=== PATIENT | female | born 1965 | race Caucasian/White ===

== ENCOUNTER 2017-05-24 16:56 | Emergency (ER) | payer BC, SELFPAY ==
[2017-05-24] MEDS ORDERED: Ketorolac Tromethamine 30 MG/ML VIAL ONE (17:09)
--- NOTE | 2017-05-24 18:09 | RAD ---
THREE VIEWS RIGHT FOOT: 05/24/17 HISTORY: Bilateral foot pain after a fall. FINDINGS: There is no fracture or dislocation seen. A plantar calcaneal enthesophyte is identified. Calcificati ons overlie the subcutaneous soft tissues adjacent to the distal tibia likely related to phleboliths. IMPRESSION: No acute osseous abnormality right foot. POS: [facility]
--- NOTE | 2017-05-24 18:10 | RAD ---
THREE VIEWS LEFT FOOT: 05/24/17 HISTORY: Bilateral foot pain after a fall. FINDINGS: there is no evidence of a fracture or dislocation. A plantar calcaneal enthesophyte is seen. Phleboli ths overlie the subcutaneous soft tissues distal left lower extremity. IMPRESSION: No acute osseous abnormality left foot. POS: [facility]
--- NOTE | 2017-05-24 19:06 | RAD ---
THREE VIEWS RIGHT ANKLE: 05/24/17 HISTORY: Right ankle injury after a fall. FINDINGS: The ankle mortise is congruent. There is no fracture or dislocation seen. a plantar calcaneal entheso phyte is identified. Phleboliths are seen overlying the anterior distal subcutaneous soft tissues rig ht lower extremity. IMPRESSION: No acute osseous abnormality. POS: [facility]
== END 2017-05-24 18:21 | disposition home or self-care (01) ==
LOC: ERS 16:56
DX: S93.401A Sprain of unspecified ligament of right ankle, initial encounter (principal); I25.10 Atherosclerotic heart disease of native coronary artery without angina pectoris; E03.9 Hypothyroidism, unspecified; E78.5 Hyperlipidemia, unspecified; I10 Essential (primary) hypertension; W19.XXXA Unspecified fall, initial encounter
CPT/HCPCS: 96372; J1885

== ENCOUNTER 2018-01-17 22:18 | Inpatient (IN) | payer BC, OTHER ==
[2018-01-17 23:19] LABS: #Basophils 0.1 thou/uL (0.0-0.2); #Eosinphils 0.2 thou/uL (0.0-0.7); #Lymphocytes 2.7 thou/uL (1.20-3.40); #Monocytes 1.1 thou/uL (0.11-0.59); #Neutrophils 8.8 thou/uL (1.40-6.50); %Basophils 0.6 % (0.0-1.0); %Eosinophils 1.6 % (0.0-10.0); %Lymphocytes 20.6 % (21.0-51.0); %Monocytes 8.8 % (0.0-10.0); %Neutrophils 68.3 % (42.0-75.0); Hemoglobin 12.2 g/dL (12.0-16.0); Mean Corpuscular HGB CONC 31.5 g/dL (32.0-36.0); Mean Corpuscular Hemoglobin 25.9 pg (27.0-31.0); Mean Corpuscular Volume 82.3 fL (78.0-98.0); Mean Platelet Volume 7.3 fL (7.4-10.4); Platelet Count 406 thou/uL (130-400); RBC Distribution Width 16.3 % (11.5-14.5); Red Blood Cell (RBC) Count 4.71 mill/uL (4.20-5.40); White Blood Cell (WBC) Count 12.9 thou/uL (4.8-10.8)
[2018-01-17 23:39] LABS: ALT (SGPT) 33 U/L (8-55); AST (SGOT) 30 U/L (5-34); Alkaline Phosphatase 89 U/L (40-150); Anion Gap 14 mmol/L (10-20); BUN (Urea Nitrogen) 34 mg/dL (9.8-20.1); Bilirubin, Total 0.2 mg/dL (0.2-1.2); Calc. Creatinine Clearance 0 mL/min (70-130); Calcium 9.4 mg/dL (7.8-10.44); Carbon Dioxide 20 mmol/L (22-29); Chloride 108 mmol/L (98-107); Estimated GFR-MDRD 49; Globulin 2.8 g/dL (2.4-3.5); Glucose 95 mg/dL (70-105); Protein, Total 6.8 g/dL (6.0-8.3); Sodium 137 mmol/L (136-145)
--- NOTE | 2018-01-17 23:41 | RAD ---
AP PELVIS 01/17/18 HISTORY: Fall. FINDINGS/IMPRESSION: There are postop changes and metallic hardware at L5-S1 level. No acute fracture or dislocation is se en. POS: [facility]
--- NOTE | 2018-01-17 23:42 | RAD ---
RIGHT LEG TWO VIEWS: 01/17/18 HISTORY: Fall. Right leg pain. FINDINGS/IMPRESSION: The right tibia and fibula are intact. POS: [facility]
[2018-01-17 23:43] LABS: CKMB 2.8 ng/mL (0-6.6); Troponin I 0.285 ng/mL (< 0.028)
--- NOTE | 2018-01-17 23:43 | RAD ---
RIGHT ANKLE THREE VIEWS: 01/17/18 HISTORY: Fall, right ankle pain. FINDINGS/IMPRESSION: The ankle mortise is maintained. No fracture or dislocation is seen. A plantar calcaneal spurs are no lindsey. POS: [facility]
--- NOTE | 2018-01-17 23:44 | RAD ---
LEFT LEG TWO VIEWS: 01/17/18 HISTORY: Injury, left leg pain. FINDINGS/IMPRESSION: No acute fracture of the left tibia or fibula seen. Well circumscribed osseous densities inferior to the medial and lateral malleoli likely represent old injury. POS: [facility]
--- NOTE | 2018-01-17 23:46 | RAD ---
LEFT ANKLE THREE VIEWS: 01/17/18 HISTORY: Injury, fall. Left ankle pain. FINDINGS/IMPRESSION: The ankle mortise is maintained. Well corticated densities inferior to the medial and lateral malleol us are likely due to old injury. No acute fracture or dislocation seen in the ankle. There is suggest ion of fractures involving the fourth and fifth metatarsals. Dedicated radiographs of the left foot a re recommended. POS: [facility]
[2018-01-18] MEDS ORDERED: Enoxaparin Sodium 100 MG/ML SYRINGE ONE (00:48)
[2018-01-18] MEDS ORDERED: Morphine 4 MG/ML VIAL ONE (00:48)
--- NOTE | 2018-01-18 11:41 | RAD ---
LEFT FOOT 3 VIEWS: HISTORY: Left foot injury. Fall. COMPARISON: 05/24/2017. FINDINGS: Slight medial subluxation of the 4th metatarsal base in relation to the cuboid is unchanged from the 05/24/2017 exam. Pes planus on the lateral view. Small plantar enthesophyte. Comminuted oblique fracture of the distal 4th metatarsal shaft shows minimal medial displacement of t he distal fragment. Mildly comminuted oblique fracture of the 5th metatarsal neck with 0.3 cm medial displacement of the distal fragment. No evidence of intraarticular extension. Callus formation abo ut a slightly impacted fracture of the mid shaft proximal phalanx little toe. IMPRESSION: 1. Left 4th and 5th metatarsal fractures include acute components. 2. Healing fracture little toe. POS: [facility]
[2018-01-18] MEDS ORDERED: Ketorolac Tromethamine 30 MG/ML VIAL IVP PRN (11:55)
[2018-01-18] MEDS ORDERED: Fentanyl 100 MCG/2 ML VIAL SLOW IVP PRN (12:12)
[2018-01-18] MEDS ORDERED: Acetaminophen 325 MG TAB PO PRN (12:12)
[2018-01-18] MEDS ORDERED: traMADol HCl 50 MG TAB PO PRN (12:12)
[2018-01-18 13:08] VITALS: BMI 51.4
[2018-01-18] MEDS ORDERED: Metoprolol Tartrate 25 MG TAB PO SCH ×2 (13:30→21:00)
[2018-01-18] MEDS ORDERED: Lisinopril 10 MG TAB PO SCH (13:30)
[2018-01-18] MEDS ORDERED: Aspirin 325 MG TAB PO SCH (13:30)
[2018-01-18] MEDS ORDERED: Baclofen 10 MG TAB PO SCH ×2 (13:30→21:00)
[2018-01-18] MEDS ORDERED: Levothyroxine Sodium 88 MCG TAB PO SCH (13:30)
--- NOTE | 2018-01-18 13:34 | HP ---
REASON FOR ADMISSION: Frequent falls with syncope, demand ischemia, fracture of left fourth and fifth metatarsals. HISTORY OF PRESENT ILLNESS: The patient gives history of feeling dizzy from last 3-4 weeks now. She went to her primary care physician, Dr. Hines and was advised to discontinue lisinopril and metoprolol. She was asked to see her nursing center tutor, Dr. Sainz. Day before, her blood pressure was 168/90 and patient has known heart disease. She started taking metoprolol and started feeling dizzy again and stopped it yesterday. Yesterday, patient apparently passed out and hit her right hip around 9:00 p.m. She was trying to reach out for a chair and lost consciousness for a few seconds and came back soon after. Currently, complains of bilateral knee pain and left foot pain. No complaints of chest pain or palpitations at present. No complaints of shortness of breath , fever, urinary frequency or urgency. No complaints of cough or expectoration. PAST MEDICAL AND SURGICAL HISTORY: Known history of coronary artery disease and per patient has a 5-vessel disease which is 50%-60% and no intervention has been done. She closely follows up with Dr. Sainz. Hypothyroidism, gastric bypass, dyslipidemia. Tonsillectomy, lumbar spine surgery, cholecystectomy, and hysterectomy. CURRENT MEDICATIONS: The patient is on carbamazepine extended release 100 mg p.o. at bedtime, aspirin 325 mg p.o. daily, Ultram p.r.n. for pain, Paxil 10 mg daily, gabapentin 1200 mg p.o. q.a.m. and 600 mg p.o. q.p.m., lovastatin 40 mg p.o. daily, baclofen 20 mg twice daily, levothyroxine 88 mcg p.o. daily, Protonix 40 mg p.o. daily, Zestril 10 mg p.o. daily, Lopressor 25 mg twice daily. Please note, patient is not taking the last two medications now. ALLERGIES: No known drug allergies. PERSONAL HISTORY: Does not abuse alcohol or drugs. No history of smoking. Lives with her . FAMILY HISTORY: Father at the age of 52 years. He has had history of coronary artery disease and bypass. Mother is living and has history of CABG. REVIEW OF SYSTEMS: The following complete review of systems was negative, unless otherwise mentioned in the HPI or below: Constitutional: Weight loss or gain, ability to conduct usual activities. Skin: Rash, itching. Eyes: Double vision, pain. ENT/Mouth: Nose bleeding, neck stiffness, pain, tenderness. Cardiovascular: Palpitations, dyspnea on exertion, orthopnea. Respiratory: Shortness of breath, wheezing, cough, hemoptysis, fever or night sweats. Gastrointestinal: Poor appetite, abdominal pain, heartburn, nausea, vomiting, constipation, or diarrhea. Genitourinary: Urgency, frequency, dysuria, nocturia. Musculoskeletal: Pain, swelling. Neurologic/Psychiatric: Anxiety, depression. Allergy/Immunologic: Skin rash, bleeding tendency. PHYSICAL EXAMINATION: GENERAL: The patient is a 52-year-old female who is currently not in any acute distress. VITAL SIGNS: Blood pressure 106/62, pulse 54 per minute, respiratory rate 16 per minute, temperature 98.1 degrees Fahrenheit, saturating 96% on room air. NECK: Supple, no elevated JVD. EYES: Extraocular muscles intact. Pupils reacting to light. ORAL CAVITY: Mucous membranes are moist. No exudates or congestion. CARDIOVASCULAR SYSTEM: S1, S2 heard. Regular rhythm. RESPIRATORY SYSTEM: Air entry 1+ bilaterally. No rales or rhonchi. ABDOMEN: Soft, bowel sounds heard. No tenderness, rigidity or guarding. EXTREMITIES: No peripheral edema or calf tenderness. VASCULAR SYSTEM: Peripheral pulses 2+ bilateral, no ischemic ulcerations or gangrene. Patient has tenderness over the left fourth and fifth toes and there is some ecchymosis seen. There is mild edema over the lateral aspect of the foot over the fourth and fifth metatarsal area. CENTRAL NERVOUS SYSTEM: No gross focal deficits noted. Patient is alert, awake , oriented well. PSYCHIATRIC SYSTEM: The patient's mood is euthymic. No hallucinations or delusions. IMAGING DATA AND LABORATORY DATA: Patient has had multiple imaging studies done. Pelvic x-ray done shows no acute fracture or dislocation. X-ray of tibia , fibula, right leg, 2 views done shows no acute fractures. Right ankle, three view standard x-ray done shows ankle mortise to be maintained. No acute fracture or dislocation seen. A plantar calcaneal spur noted. Left ankle three view standard x-ray done shows ankle mortise is maintained, well corticated densities inferior to the medial and lateral malleolus are likely due to old injury. No acute fracture or dislocations seen in the ankle. There is suggestion of fractures involving the fourth and fifth metatarsals. Left tibia fibula x-ray done shows no acute fracture, well circumscribed osseous densities inferior to the medial and lateral malleoli likely represent an old injury. Left foot three view x-ray done shows left fourth and fifth metatarsal fractures, healing fracture of the little toe. Serum bicarbonate 20, BUN 34, creatinine 1.1, serum glucose 95. Troponin I 0.28, CK-MB 2.8. Liver enzymes within normal limits. Albumin is 4.0. White count of 12, hemoglobin and hematocrit 12 and 38, platelet count 406 with 68% neutrophils. CLINICAL IMPRESSION AND PLAN: The patient will be under observation on telemetry for syncope with momentary loss of consciousness, demand ischemia, left fourth and fifth metatarsal fracture due to fall. We will obtain orthopedic consultation with Dr. Tsai. The patient is asking for more powerful medication than morphine. She will be on Toradol for now. PT, OT evaluations per Dr. Tsai as advised. She will be on aspirin, Lipitor, baclofen, Tegretol, levothyroxine, Protonix, Paxil, and Ultram as before. She will be on Lopressor 25 mg twice daily for now. Two more sets of troponin will be obtained and a follow up on the results. Addendum: has evaluated patient and is cleared for discharge. She is hemodynamically stable and will be discharged home. She needs to f/u with as adviced. Please note this is a same day admit discharge under observation summary. is adviced to f/u with her nursing center tutor in 4 weeks. MTDD
[2018-01-18 15:13] LABS: Troponin I 0.279 ng/mL (< 0.028)
[2018-01-18 15:33] VITALS: BP 126/58; TEMP 98.3
--- NOTE | 2018-01-18 15:50 | CON ---
DATE OF CONSULTATION: 01/18/2018 HISTORY OF PRESENT ILLNESS: Ms. Heredia is a 52-year-old female who had a syncopal episode at home an d states that she fell and had immediate pain, particularly in her left foot. She was seen in the em ergency room last night and early this morning. She did have x-rays obtained of the left foot which I was able to review. She had fracture of the neck of the fourth and fifth metatarsals and the base of the proximal phalanx of the little toe on the left foot. She has no open wounds over the fracture s. I was consulted for evaluation and management of the fracture of the left foot. PHYSICAL EXAMINATION: The patient has moderate swelling and bruising over the left foot. She has po int tenderness over the distal aspect of the fourth and fifth metatarsals and at the base of the sujatha le toe. All of the digits are in good alignment. She has good sensation in her entire left foot. IMPRESSION: Fractures of the neck of the fourth and fifth metatarsals, fracture at the proximal phal anx of the left little toe. All fractures are in good alignment and do not require surgery. PLAN: Patient will elevate her left foot, use ice as much as possible, Tim wrap when she does get ou t of bed. She can weightbear as tolerated on the left foot using a postoperative shoe. Finally, the patient is discharged. She will follow up in my office in 2 weeks.
--- NOTE | 2018-01-18 17:32 | RAD ---
RIGHT KNEE FOUR VIEWS: 01/18/18 HISTORY: Knee pain, status post fall. The bones are demineralized. There is no signs of fracture or dislocation. Minimal joint effusion is noted. IMPRESSION: No evidence of fracture. POS: [facility]
[2018-01-18] MEDS ORDERED: Atorvastatin Calcium 10 MG TAB PO SCH (21:00)
[2018-01-19] MEDS ORDERED: Levothyroxine Sodium 88 MCG TAB PO SCH (06:00)
[2018-01-19] MEDS ORDERED: Aspirin 325 MG TAB PO SCH (09:00)
[2018-01-19] MEDS ORDERED: Lisinopril 10 MG TAB PO SCH (09:00)
[2018-01-19] MEDS ORDERED: PARoxetine 20 MG TAB PO SCH (09:00)
== END 2018-01-18 17:37 | disposition home or self-care (01) | DRG 563 ==
LOC: ERS 22:18 → 2SE 01-18 11:31
PROVIDERS: ADMIT Internal Medicine; ATTEND Internal Medicine
DX: S92.342A Displaced fracture of fourth metatarsal bone, left foot, initial encounter for closed fracture (principal); I24.8 Other forms of acute ischemic heart disease; S92.352A Displaced fracture of fifth metatarsal bone, left foot, initial encounter for closed fracture; R55 Syncope and collapse; Z91.81 History of falling; I25.10 Atherosclerotic heart disease of native coronary artery without angina pectoris; E03.9 Hypothyroidism, unspecified; Z98.84 Bariatric surgery status; E78.5 Hyperlipidemia, unspecified; Z79.899 Other long term (current) drug therapy; Z79.82 Long term (current) use of aspirin; Z79.891 Long term (current) use of opiate analgesic; W19.XXXA Unspecified fall, initial encounter
CPT/HCPCS: 36415; 72170; 80053; 82553; 84484; 85025; 93005; 96372; 96374; J1650; J1885; J2270; J3010

== ENCOUNTER 2018-03-14 11:26 | Outpatient (CLI) | payer BC ==
--- NOTE | 2018-03-14 12:24 | RAD ---
RIGHT HIP TWO VIEWS: Date: 03-14-18 Comparison: 06-14-15 History: Low back pain with pain in bilateral hips. FINDINGS: There is degenerative change involving the pubic symphysis. There is no displaced fracture or evidenc e of dislocation. IMPRESSION: No acute osseous abnormality. POS: [facility]
--- NOTE | 2018-03-14 12:24 | RAD ---
LEFT HIP TWO VIEWS: Date: 03-14-18 Comparison: 06-14-15 History: Low back pain, bilateral hip pain. FINDINGS: There is mild acetabular osteophyte formation laterally on the left. No acute fracture or dislocation . IMPRESSION: No acute findings. POS: [facility]
--- NOTE | 2018-03-14 12:30 | CT ---
LUMBAR SPINE CT: Date: 03-14-18 Comparison: 06-14-15 History: Lumbar spine pain, prior lumbar spine surgery. Technique: Axial CT imaging at 3 mm intervals from lower thoracic spine through sacrum with coronal a nd sagittal reformatted imaging. FINDINGS: Evaluation for central canal and/or neural foraminal stenosis is limited on routine CT. Incompletely imaged low density right adrenal mass suggesting adenoma noted measuring 4.2 cm in greatest dimension , unchanged. There are bilateral pedicle screws at L5 and S1 with vertically oriented interlocking rods, new when compared to the prior examination. There is no evidence for hardware failure. No evidence for acute fracture or dislocation. There is stable bilateral sacroiliac joint degenerativ e change. T12-L1: No osseous cause of significant central canal or neural foraminal stenosis. Mild bilateral f acet hypertrophy. L1-2: Disc space narrowing. Mild anterior osteophyte formation. Mild bilateral facet hypertrophy. Lef t lateral osteophyte formation. No osseous cause of significant central canal or neural foraminal aleksandr nosis. L2-3: There is disc space narrowing. There is lateral osteophyte formation on the right and there is bilateral facet hypertrophy. There is no osseous cause of significant central canal or neural foramin al stenosis. L3-4: Mild bilateral facet hypertrophy. No osseous cause of significant central canal or neural moses inal stenosis. L4-5: There is disc space narrowing and a vacuum disc. There is bilateral facet hypertrophy. There is probable mild bilateral neural foraminal stenosis. L5-S1: Bilateral facet hypertrophy noted with at least mild bilateral neural foraminal stenosis, left greater than right, partially limited in assessment secondary to streak artifact from post-operative hardware. Mild posterior osteophyte. No worrisome lytic or blastic bone lesion. IMPRESSION: Degenerative and post-operative changes within the lumbar spine. Evaluation for central canal and rico ral foraminal stenosis is limited and could be better assessed via myelogram as clinically warranted. No acute fracture or evidence of hardware failure. POS: [facility]
== END 2018-03-14 11:27 | disposition home or self-care (01) ==
LOC: TBSIIMAG 11:26
PROVIDERS: ATTEND Neurological Surgery
DX: M54.5 Low back pain (principal); M47.816 Spondylosis without myelopathy or radiculopathy, lumbar region; M48.061 Spinal stenosis, lumbar region without neurogenic claudication; M25.552 Pain in left hip; M25.551 Pain in right hip; Z98.890 Other specified postprocedural states
CPT/HCPCS: 72131

== ENCOUNTER 2018-07-22 12:08 | Inpatient (IN) | payer BC, SELFPAY ==
[~2018-07-22 12:08] MED LIST: ISOVUE-370 76%-LOCM 1 ML ONE; Iopamidol 370 76% 50 ML VIAL FS ONE
[2018-07-22 13:13] LABS: Hemoglobin 11.8 g/dL (12.0-16.0); Mean Corpuscular HGB CONC 30.6 g/dL (32.0-36.0); Mean Corpuscular Hemoglobin 24.6 pg (27.0-31.0); Mean Corpuscular Volume 80.6 fL (78.0-98.0); Mean Platelet Volume 8.9 fL (7.4-10.4); Platelet Count 269 thou/uL (130-400); RBC Distribution Width 18.3 % (11.5-14.5); Red Blood Cell (RBC) Count 4.78 mill/uL (4.20-5.40)
--- NOTE | 2018-07-22 13:27 | RAD ---
EXAM: Chest 2 views: HISTORY: Coughing up bright red blood COMPARISON: 05/23/13 FINDINGS: There is a normal-sized cardiomediastinal silhouette. Scattered airspace opacities are seen in the ri ght lung consistent with infiltrates. The bones are unremarkable. IMPRESSION: Multifocal right pulmonary infiltrates
[2018-07-22 13:28] LABS: ALT (SGPT) 8 U/L (8-55); AST (SGOT) 17 U/L (5-34); Albumin 3.8 g/dL (3.5-5.0); Alkaline Phosphatase 111 U/L (40-150); Anion Gap 11 mmol/L (10-20); BUN (Urea Nitrogen) 17 mg/dL (9.8-20.1); Bilirubin, Total 0.7 mg/dL (0.2-1.2); CK (CPK) 87 U/L (29-168); Calc. Creatinine Clearance 0 mL/min (70-130); Calcium 9.5 mg/dL (7.8-10.44); Carbon Dioxide 25 mmol/L (22-29); Chloride 106 mmol/L (98-107); Estimated GFR-MDRD 75; Globulin 2.1 g/dL (2.4-3.5); Glucose 113 mg/dL (70-105); Potassium 4.4 mmol/L (3.5-5.1); Protein, Total 5.9 g/dL (6.0-8.3); Sodium 138 mmol/L (136-145)
[2018-07-22 13:34] LABS: Anisocytosis SLIGHT = 6-15 cells (100X) (0-5/hpf); Band 24 % (5-11); Hypochromia SLIGHT = 6-15 cells (100X) (0-5/hpf); Lymphocytes 4 % (21-51); MDiff Complete? YES; Monocytes 2 % (0-10); Neutrophil 70 % (42-75); Platelet Morphology Comment Appears Adequate
[2018-07-22 13:51] LABS: CKMB 1.6 ng/mL (0-6.6)
--- NOTE | 2018-07-22 14:39 | CT ---
Exam: CTA of the chest HISTORY: Cough for one month. COMPARISON: None TECHNIQUE: Multiple contiguous axial images were obtained a CTA of the chest with contrast per pulmon martha embolism protocol. 3-D oblique MIP reformats and direct coronal reformats were performed. FINDINGS: HEART: Normal in size without focal cardiac abnormality. PULMONARY ARTERIES: Normal in caliber without filling defects to suggest pulmonary emboli. MEDIASTINUM: No hilar or mediastinal lymphadenopathy. LUNGS: Multifocal opacities are seen in the right upper, middle, and lower lobes consistent with mult ifocal pneumonia. There may also be infiltrates in the left lower lobe. PLEURAL SPACE: No pleural effusion or pneumothorax. CHEST WALL SOFT TISSUES: Unremarkable VISUALIZED OSSEOUS STRUCTURES: Degenerative changes are seen in the spine. VISUALIZED SUBDIAPHRAGMATIC STRUCTURES: There is a 3.7 cm right adrenal mass with a mean Hounsfield u nit value of 1 consistent with a fat-containing adrenal adenoma.. The patient is status post cholecystectomy. IMPRESSION: 1. No evidence of pulmonary thromboembolism 2. Multifocal pneumonia 3. Right adrenal adenoma
[2018-07-22] MEDS ORDERED: Acetaminophen 500 MG TAB ONE (16:44)
[2018-07-22] MEDS ORDERED: Ondansetron ODT 4 MG TAB PO PRN (17:17)
[2018-07-22] MEDS ORDERED: Ondansetron PF 4 MG/2 ML Vial IVP PRN (17:17)
[2018-07-22 17:20] LABS: CKMB 1.2 ng/mL (0-6.6)
[2018-07-22] MEDS ORDERED: Melatonin 3 MG TAB PO PRN (17:46)
--- NOTE | 2018-07-22 18:47 | HP ---
CHIEF COMPLAINT: Worsening cough and hemoptysis. HISTORY OF PRESENT ILLNESS: A 53-year-old female with past medical history significant for coronary artery disease, hypothyroidism, morbid obesity, status post gastric bypass, amongst others, who presents to the hospital with worsening cough and hemoptysis. The patient reported that she has been coughing since about 1 month, associated with brownish green sputum production and right-sided pleuritic chest pain. The patient thought that this is due to her allergies and took over the counter medications. Symptoms continued until earlier today when the patient started coughing up blood, which she said was dark reddish, mixed with sputum. She had multiple episodes of hemoptysis compared to this evening. She was concerned and decided to come to the hospital for further evaluation. She also reported right back pain, which is worse with coughing and with respiratory effort. She also reported having chills and rigor today, but denied fever since onset of symptoms. There is also no history of nausea, vomiting, hematuria, dysuria, leg swelling, nausea or vomiting, abdominal pain. The patient, however, have migraine, for which she takes Excedrin Migraine. She also has chronic back pain, for which she is on several medications for that. On presentation to the emergency room, the patient was found to be afebrile, but further evaluation with CBC showed leukocytosis. Chest x-ray showed multifocal pulmonary infiltrates, which were also noted on subsequent CT angio of the chest. She was treated with Rocephin and azithromycin and was admitted subsequently for further evaluation and treatment. Since presentation here to the hospital, the patient reported that the bloody sputum have subsided. She denied recent travel outside of the country or sick contacts or family history of tuberculosis or contact with anybody with tuberculosis. PAST MEDICAL HISTORY: 1. Coronary artery disease. 2. Hypothyroidism. 3. Morbid obesity. 4. Dyslipidemia. 5. Chronic pain. 6. Cervical and lumbar spondylosis. 7. Migraine headache. PAST SURGICAL HISTORY: Include the following; 1. Cardiac catheterization. 2. Gastric bypass surgery. 3. Lumbar spine surgery. 4. Tonsillectomy. 5. Cholecystectomy. 6. Hysterectomy. FAMILY HISTORY: Significant for hypertension, diabetes, and coronary artery disease in both parents. Both parents also had CABG. SOCIAL HISTORY: The patient lives with family. Denied alcohol, smoking, or recreational drug use. ALLERGIES: NO KNOWN DRUG ALLERGY. THE PATIENT, HOWEVER, REPORTED TAKING THE MEDICATION DURING PRIOR HOSPITALIZATION, WHICH MADE HER FEEL BAD, BUT SHE WAS UNABLE TO PROVIDE THE NAME OF THE MEDICATION. MEDICATIONS: Home medications; 1. Tramadol 50 mg q.4 hours p.r.n. 2. Nitroglycerin 0.4 mg q.5 p.r.n. for chest pain. 3. Aspirin 325 mg p.o. daily. 4. Baclofen 20 mg p.o. b.i.d. 5. Gabapentin 600 mg p.o. every morning. 6. Levothyroxine 88 mcg p.o. daily. 7. Protonix 40 mg p.o. daily. 8. Paroxetine 10 mg p.o. daily. 9. Bentyl 20 mg p.o. q.i.d. p.r.n. Of note, the patient has Tegretol, celecoxib, lisinopril, and metoprolol as well as lovastatin, but she does not take this medication due to low blood pressure and recent near syncope as well as intolerance. REVIEW OF SYSTEMS: A 12-point review of systems performed was negative other than pertinent positives and negatives included in the history of present illness. PHYSICAL EXAMINATION: VITAL SIGNS: On presentation to the emergency room, the patient had the following vitals. Blood pressure 108/70, pulse 97, respiratory rate 20, temperature 97.6, SpO2 of 94 on room air. Current vital shows blood pressure 117/67, pulse 82, respiratory rate 14, temperature 99.4, SpO2 of 100% on room air. GENERAL: Morbidly obese female, in no obvious distress. Afebrile, anicteric, acyanotic. HEENT: Normocephalic, atraumatic. Pupils are equal and reacting to light. Oral mucosa is moist. NECK: Soft and supple with preserved range of motion. No masses appreciated. CARDIOVASCULAR: Regular rhythm and rate with normal heart sounds 1 and 2. No murmur is appreciated. RESPIRATORY: Fair air entry bilateral with no obvious rhonchi or wheezing appreciated. Scattered crackles noticed on the right hemithorax. GI: Abdomen is obese, soft, nontender, nondistended with normal bowel sounds. EXTREMITIES: Grossly normal looking, atraumatic, with no edema, erythema, or cyanosis. NEUROLOGIC: Conscious, alert, oriented x3 with appropriate mental status. Cranial nerves 2 through 12 are intact. The patient moves all extremities. DIAGNOSTIC DATA: CBC showed WBC count of 16.0, hemoglobin of 11.8, MCV of 80.6, platelets of 269. CMP showed sodium 138, potassium 4.4, chloride 106, CO2 of 25, BUN 17, creatinine 0.8, glucose 113, calcium 9.5, total bilirubin 0.7, AST 17, ALT 8, alkaline phosphatase 111, total protein 5.9, albumin 3.8, globulin 2.1. Initial cardiac markers showed CK 87, CK-MB 1.6, troponin 0.069. Repeat troponin 3 hours later showed 0.072. BNP is 81.9. Lactic acid is 1.3. Chest x-ray showed normal-sized cardiomediastinal silhouette with scattered airspace opacities seen in the right lung consistent with infiltrates. CT scan of the chest with and without contrast showed normal-sized heart without focal cardiac abnormality. Normal pulmonary arteries without filling defect to suggest pulmonary embolism. Multifocal opacities seen in the right upper middle and lower lobes consistent with multifocal pneumonia as well as infiltrates in the left lower lobe. No pleural effusion or pneumothorax noted. EKG showed normal sinus rhythm with no obvious ischemic changes. ASSESSMENT: 1. Multifocal pneumonia. 2. Hemoptysis: Most likely due to multifocal pneumonia. However, tuberculosis is a concern given chronic cough for more than about 1 month. There is no history of weight loss or night sweats however. 3. History of hypertension: The patient is currently off medications following recent syncopal episode. Blood pressures are within normal limits. 4. Coronary artery disease: The patient reportedly has had several cardiac catheterizations. 5. Elevated troponin: Most likely due to demand ischemia of the myocardium. Type 2 non-ST elevation myocardial infarction is a concern. 6. Pleuritic chest pain. 7. Chronic back pain. 8. Morbid obesity. 9. Hypothyroidism. PLAN: 1. We will admit the patient for observation with airborne isolation. 2. We will start broad-spectrum antibiotic therapy with Rocephin and azithromycin for community-acquired pneumonia. 3. We will also get sputum culture as well as AFB x3 to rule out tuberculosis. 4. We will start airborne precaution. 5. Analgesic as needed will be provided. 6. DVT prophylaxis with Lovenox. 7. Bronchodilators and oxygen supplementation as needed will also be provided. We will rule out acute myocardial infarction with serial troponin. 8. Diet as tolerated. 9. Ethics: Code status; full code. Spouse is the surrogate decision maker. Job ID: [id number]
[2018-07-22 21:57] VITALS: BMI 46.2
[2018-07-22] MEDS: cefTRIAXone\\ROCEPHIN 1 GM in Sodium Chloride 0.9% 100 ML IVPB SCH (22:08)
[2018-07-22] MEDS: Sodium Chloride 0.9% 1,000 ML IV SCH (22:12)
[2018-07-22] MEDS: Azithromycin 500 MG in Sodium Chloride 0.9% 250 ML 250 ML IVPB SCH (22:14)
[2018-07-22] MEDS: Baclofen 10 MG TAB PO SCH (22:20)
[2018-07-22] MEDS ORDERED: Gabapentin 400 MG CAP PO SCH (23:45)
[2018-07-22] MEDS: diphenhydrAMINE 50 MG CAP PO PRN (23:54)
[2018-07-22] MEDS: CeleCOXIB 100 MG CAP PO PRN (23:54)
[2018-07-23] MEDS: Levothyroxine Sodium 88 MCG TAB PO SCH (05:16)
[2018-07-23] MEDS: Sodium Chloride 0.9% 1,000 ML IV SCH ×2 (05:22→13:08)
[2018-07-23 06:21] LABS: #Eosinphils 0.3 thou/uL (0.0-0.7); #Lymphocytes 1.8 thou/uL (1.20-3.40); #Monocytes 0.7 thou/uL (0.11-0.59); #Neutrophils 12.2 thou/uL (1.40-6.50); %Basophils 0.3 % (0.0-1.0); %Lymphocytes 11.9 % (21.0-51.0); %Monocytes 4.6 % (0.0-10.0); %Neutrophils 81.3 % (42.0-75.0); Hemoglobin 10.8 g/dL (12.0-16.0); Mean Corpuscular HGB CONC 30.5 g/dL (32.0-36.0); Platelet Count 281 thou/uL (130-400); RBC Distribution Width 18.3 % (11.5-14.5); Red Blood Cell (RBC) Count 4.34 mill/uL (4.20-5.40)
[2018-07-23 06:44] LABS: Anion Gap 10 mmol/L (10-20); BUN (Urea Nitrogen) 13 mg/dL (9.8-20.1); Calc. Creatinine Clearance 172 mL/min (70-130); Calcium 9.9 mg/dL (7.8-10.44); Carbon Dioxide 30 mmol/L (22-29); Chloride 106 mmol/L (98-107); Estimated GFR-MDRD 87; Glucose 77 mg/dL (70-105); Potassium 4.2 mmol/L (3.5-5.1); Sodium 142 mmol/L (136-145)
[2018-07-23] MEDS ORDERED: Gabapentin 300 MG CAP PO SCH (09:00)
[2018-07-23] MEDS: Aspirin 325 MG TAB PO SCH (09:46)
[2018-07-23] MEDS: Baclofen 10 MG TAB PO SCH ×2 (09:46→21:29)
[2018-07-23] MEDS: Gabapentin 400 MG CAP PO SCH ×2 (09:46→21:28)
[2018-07-23] MEDS: PARoxetine 20 MG TAB PO SCH (09:46)
[2018-07-23] MEDS: Enoxaparin Sodium 40 MG/0.4 ML SYRINGE SC SCH (09:47)
[2018-07-23] MEDS: CeleCOXIB 100 MG CAP PO PRN (13:16)
[2018-07-23] MEDS: traMADol HCl 50 MG TAB PO PRN ×2 (13:16→19:48)
--- NOTE | 2018-07-23 14:26 | PDOC.PN ---
- Subjective Encounter Start Date: 07/23/18 Encounter Start Time: 10:24 Subjective: Admitted with worsening cough associated with sputum production and hemopty -: No fever. -: complains of sleepless nights - Objective Resuscitation Status - Order Detail: 07/22/18 17:17 Resuscitation Status Routine Resuscitation Status: FULL: Full Resuscitation Vital Signs & Weight: Vital Signs (12 hours) Temp Pulse Resp BP Pulse Ox 07/23/18 12:00 98.1 F 94 18 121/58 L 94 L 07/23/18 10:20 79 16 96 07/23/18 08:00 97.8 F 78 16 117/60 93 L 07/23/18 06:31 75 16 95 07/23/18 04:00 97.5 F L 79 16 102/52 L 99 Weight Weight 261 lb I&O: 07/22/18 07/23/18 07/24/18 06:59 06:59 06:59 Intake Total 1570 Output Total 1250 Balance 320 Result Diagrams: 07/23/18 05:30 07/23/18 05:30 Phys Exam - Physical Examination Constitutional: NAD obese HEENT: PERRLA, moist MMs, sclera anicteric Neck: supple fair air entry with right scattered crackles. No rhonchi Cardiovascular: RRR Gastrointestinal: soft, non-tender, no distention, positive bowel sounds morbidly obese Musculoskeletal: no edema, pulses present Neurological: non-focal, moves all 4 limbs Psychiatric: A&O x 3 Dx/Plan (1) Multifocal pneumonia Code(s): J18.9 - PNEUMONIA, UNSPECIFIED ORGANISM Status: Acute (2) Cough with hemoptysis Code(s): R04.2 - HEMOPTYSIS Status: Acute (3) Chronic pain syndrome Code(s): G89.4 - CHRONIC PAIN SYNDROME Status: Chronic (4) Coronary artery disease Code(s): I25.10 - ATHSCL HEART DISEASE OF [place] CORONARY ARTERY W/O ANG PCTRS Status: Chronic Qualifiers: Coronary Disease-Associated Artery/Lesion type: [place] artery [place] vs. transplanted heart: [place] heart Associated angina: without angina Qualified Code(s): I25.10 - Atherosclerotic heart disease of [place] coronary artery without angina pectoris (5) Low back pain Code(s): M54.5 - LOW BACK PAIN Status: Chronic Qualifiers: Chronicity: chronic Back pain laterality: unspecified Sciatica presence: unspecified whether sciatica present Qualified Code(s): M54.5 - Low back pain ; G89.29 - Other chronic pain (6) Morbid obesity Code(s): E66.01 - MORBID (SEVERE) OBESITY DUE TO EXCESS CALORIES Status: Chronic - Plan Continue antibiotics, bronchodilators and Prn oxygen -: Start mucinex -: Get quantiferon gold. AFB x3 in progress -: Start melatonin for sleep. -: Continue analgesic for pain. Continue airborne precaution. * .
[2018-07-23] MEDS: cefTRIAXone\\ROCEPHIN 1 GM in Sodium Chloride 0.9% 100 ML IVPB SCH (17:15)
[2018-07-23] MEDS: Acetaminophen 325 MG TAB PO PRN ×2 (17:31→21:28)
[2018-07-23] MEDS: Azithromycin 500 MG in Sodium Chloride 0.9% 250 ML 250 ML IVPB SCH (19:42)
[2018-07-23] MEDS: diphenhydrAMINE 50 MG CAP PO PRN (21:28)
[2018-07-24] MEDS: Levothyroxine Sodium 88 MCG TAB PO SCH (05:03)
[2018-07-24] MEDS: CeleCOXIB 100 MG CAP PO PRN ×2 (05:04→20:30)
[2018-07-24] MEDS: traMADol HCl 50 MG TAB PO PRN ×4 (05:06→20:26)
[2018-07-24] MEDS: Gabapentin 400 MG CAP PO SCH ×2 (09:18→20:25)
[2018-07-24] MEDS: Aspirin 325 MG TAB PO SCH (09:18)
[2018-07-24] MEDS: Acetaminophen 325 MG TAB PO PRN ×2 (09:18→22:17)
[2018-07-24] MEDS: Baclofen 10 MG TAB PO SCH ×2 (09:18→20:24)
[2018-07-24] MEDS: Enoxaparin Sodium 40 MG/0.4 ML SYRINGE SC SCH (09:19)
[2018-07-24] MEDS: PARoxetine 20 MG TAB PO SCH (09:19)
[2018-07-24] MEDS ORDERED: Melatonin 3 MG TAB PO PRN (11:14)
--- NOTE | 2018-07-24 13:28 | PDOC.PN ---
- Subjective Encounter Start Date: 07/24/18 Encounter Start Time: 13:27 Subjective: No new problem -: Still coughing with sputum production -: Still with pleuritic chest pain. No fever or SOB. - Objective Resuscitation Status - Order Detail: 07/22/18 17:17 Resuscitation Status Routine Resuscitation Status: FULL: Full Resuscitation Vital Signs & Weight: Vital Signs (12 hours) Temp Pulse Resp BP Pulse Ox 07/24/18 11:03 98.4 F 98 18 125/60 93 L 07/24/18 10:29 96 16 07/24/18 07:52 100.3 F H 101 H 17 150/68 H 93 L 07/24/18 07:09 96 07/24/18 07:04 83 15 96 07/24/18 04:20 98.6 F 85 20 130/69 93 L Weight Weight 263 lb 7 oz I&O: 07/23/18 07/24/18 07/25/18 06:59 06:59 06:59 Intake Total 1570 3340 Output Total 1250 2400 Balance 320 940 Result Diagrams: 07/23/18 05:30 07/23/18 05:30 Phys Exam - Physical Examination Constitutional: NAD morbidly obese HEENT: PERRLA Neck: no JVD, supple Respiratory: no wheezing, no rhonchi fair air entry bilaterally with few right sided crackles Cardiovascular: RRR Gastrointestinal: soft, non-tender, no distention, positive bowel sounds morbidly obese Musculoskeletal: no edema, pulses present Neurological: non-focal, moves all 4 limbs Dx/Plan (1) Multifocal pneumonia Code(s): J18.9 - PNEUMONIA, UNSPECIFIED ORGANISM Status: Acute (2) Cough with hemoptysis Code(s): R04.2 - HEMOPTYSIS Status: Acute (3) Chronic pain syndrome Code(s): G89.4 - CHRONIC PAIN SYNDROME Status: Chronic (4) Coronary artery disease Code(s): I25.10 - ATHSCL HEART DISEASE OF [place] CORONARY ARTERY W/O ANG PCTRS Status: Chronic Qualifiers: Coronary Disease-Associated Artery/Lesion type: [place] artery [place] vs. transplanted heart: [place] heart Associated angina: without angina Qualified Code(s): I25.10 - Atherosclerotic heart disease of [place] coronary artery without angina pectoris (5) Low back pain Code(s): M54.5 - LOW BACK PAIN Status: Chronic Qualifiers: Chronicity: chronic Back pain laterality: unspecified Sciatica presence: unspecified whether sciatica present Qualified Code(s): M54.5 - Low back pain ; G89.29 - Other chronic pain (6) Morbid obesity Code(s): E66.01 - MORBID (SEVERE) OBESITY DUE TO EXCESS CALORIES Status: Chronic - Plan Continue current antibiotic. -: Await sputum cx, AFB smear/Cx and quantiferon gold -: Start incentive spirometry -: bronchodilators as needed -: Analgesic as needed to continue. Restart celecoxib * .
[2018-07-24] MEDS: cefTRIAXone\\ROCEPHIN 1 GM in Sodium Chloride 0.9% 100 ML IVPB SCH (17:00)
[2018-07-24] MEDS: Azithromycin 500 MG in Sodium Chloride 0.9% 250 ML 250 ML IVPB SCH (20:19)
[2018-07-24] MEDS: diphenhydrAMINE 50 MG CAP PO PRN (22:17)
[2018-07-25] MEDS: Levothyroxine Sodium 88 MCG TAB PO SCH (06:15)
[2018-07-25] MEDS: Aspirin 325 MG TAB PO SCH (09:36)
[2018-07-25] MEDS: Baclofen 10 MG TAB PO SCH ×2 (09:36→20:51)
[2018-07-25] MEDS: Gabapentin 400 MG CAP PO SCH ×2 (09:37→20:50)
[2018-07-25] MEDS: PARoxetine 20 MG TAB PO SCH (09:37)
[2018-07-25] MEDS: Enoxaparin Sodium 40 MG/0.4 ML SYRINGE SC SCH (09:40)
[2018-07-25] MEDS: Acetaminophen 325 MG TAB PO PRN ×2 (09:46→23:45)
[2018-07-25] MEDS: CeleCOXIB 100 MG CAP PO PRN ×2 (09:47→20:53)
[2018-07-25] MEDS: traMADol HCl 50 MG TAB PO PRN ×2 (09:48→20:52)
--- NOTE | 2018-07-25 11:48 | PRG ---
DATE OF SERVICE: 07/25/2018 SUBJECTIVE: The patient reports she feels like she is about 50% better. She is still coughing, still has some sputum production. She reports she does generally get up and around okay at home, but she related that she had disk problems in her back, disk problems in her neck, and that she had had a fall in January and broken both of her feet, only one of them was diagnosed originally and the other one was not found until April or May, but she feels like she could get up and around. She is using her incentive spirometry, getting up to about 2300. OBJECTIVE: VITAL SIGNS: Temperature 97.5, pulse 80, respirations 15, O2 saturation 99% on room air, BP 129/58. GENERAL APPEARANCE: Age-appropriate female, in no distress. LUNGS: Breathing comfortably. Obese. She is awake and alert. HEART: Regular rate and rhythm without murmurs, gallops, or rubs. LUNGS: Clear bilaterally with no wheezes or rales. ABDOMEN: Soft, nontender, and nondistended. Positive bowel sounds. No masses. No organomegaly. EXTREMITIES: No cyanosis, clubbing, or edema. SKIN: Warm and dry. IMPRESSION AND PLAN: 1. Multilobar pneumonia with three lobes on the right and potentially one on the left lower involved. She is on Rocephin and azithromycin, 50% better, sats are normal. She is not tachypneic. She does report she is still having a little discomfort in her chest but given her overall pain complex, difficult to ascertain whether that specifically related to the pneumonia. She has had two negative AFB smears, had third collected just now. We will await for results on that. If that remains negative, we will likely be able to switch to p.o. antibiotics and discharge probably as early as tomorrow. Continue with bronchodilators, incentive spirometry. 2. Chronic pain syndrome. Continue with her medications from home. 3. Hemoptysis, ruling out TB as above, likely just related to the multilobar pneumonia. 4. History of coronary artery disease, stable with no evidence of decompensation. 5. Non ST-elevation myocardial infarction type 2 secondary to infection, stable. No intervention indicated. Job ID: [id number]
[2018-07-25] MEDS: cefTRIAXone\\ROCEPHIN 1 GM in Sodium Chloride 0.9% 100 ML IVPB SCH (16:30)
[2018-07-25] MEDS: Azithromycin 500 MG in Sodium Chloride 0.9% 250 ML 250 ML IVPB SCH (20:44)
[2018-07-25] MEDS: diphenhydrAMINE 50 MG CAP PO PRN (20:53)
[2018-07-26] MEDS: Levothyroxine Sodium 88 MCG TAB PO SCH (05:30)
[2018-07-26 05:59] LABS: #Basophils 0.1 thou/uL (0.0-0.2); #Eosinphils 0.4 thou/uL (0.0-0.7); #Lymphocytes 1.6 thou/uL (1.20-3.40); #Monocytes 0.6 thou/uL (0.11-0.59); #Neutrophils 2.9 thou/uL (1.40-6.50); %Basophils 1.1 % (0.0-1.0); %Eosinophils 7.7 % (0.0-10.0); %Lymphocytes 28.9 % (21.0-51.0); %Monocytes 10.6 % (0.0-10.0); %Neutrophils 51.7 % (42.0-75.0); Mean Corpuscular HGB CONC 31.2 g/dL (32.0-36.0); Mean Corpuscular Hemoglobin 25.1 pg (27.0-31.0); Mean Corpuscular Volume 80.4 fL (78.0-98.0); Mean Platelet Volume 8.5 fL (7.4-10.4); Platelet Count 301 thou/uL (130-400); Red Blood Cell (RBC) Count 4.01 mill/uL (4.20-5.40); White Blood Cell (WBC) Count 5.6 thou/uL (4.8-10.8)
[2018-07-26 06:10] LABS: Anion Gap 12 mmol/L (10-20); BUN (Urea Nitrogen) 10 mg/dL (9.8-20.1); Calc. Creatinine Clearance 102 mL/min (70-130); Carbon Dioxide 27 mmol/L (22-29); Chloride 108 mmol/L (98-107); Estimated GFR-MDRD 84; Glucose 81 mg/dL (70-105); Potassium 4.9 mmol/L (3.5-5.1); Sodium 142 mmol/L (136-145)
[2018-07-26] MEDS: Enoxaparin Sodium 40 MG/0.4 ML SYRINGE SC SCH (09:23)
[2018-07-26] MEDS: Aspirin 325 MG TAB PO SCH (09:24)
[2018-07-26] MEDS: Gabapentin 400 MG CAP PO SCH (09:24)
[2018-07-26] MEDS: Baclofen 10 MG TAB PO SCH (09:24)
[2018-07-26] MEDS: PARoxetine 20 MG TAB PO SCH (09:25)
[2018-07-26] MEDS: CeleCOXIB 100 MG CAP PO PRN (09:32)
[2018-07-26] MEDS: traMADol HCl 50 MG TAB PO PRN (14:24)
[2018-07-26] MEDS: Acetaminophen 325 MG TAB PO PRN (14:24)
[2018-07-26 17:27] VITALS: BP 138/69; TEMP 97.9
[2018-07-26] MEDS: cefTRIAXone\\ROCEPHIN 1 GM in Sodium Chloride 0.9% 100 ML IVPB SCH (17:38)
--- NOTE | 2018-07-26 19:10 | DIS ---
DATE OF ADMISSION: 07/22/2018 DATE OF DISCHARGE: 07/26/2018 DISCHARGE DIAGNOSES: 1. Multilobar pneumonia. 2. Hemoptysis. 3. Chronic pain syndrome. 4. History of coronary artery disease. 5. Non ST-elevation myocardial infarction type 2, secondary to demand ischemia. 6. Morbid obesity. HISTORY OF PRESENT ILLNESS: This patient is a 53-year-old female with morbid obesity and history of coronary artery disease, who presented via the emergency department with cough and minimal hemoptysis. She had a chest x-ray showed some scattered airspace opacities primarily in the right lung consistent with infiltrate. Subsequent CT of the chest showed no pulmonary emboli but multiple opacities in the right upper, middle, and lower lobes consistent with multifocal pneumonia as well as infiltrates in the left lower lobe. Her EKG showed no ischemic changes, although her troponin was equivocal at 0.069. The patient was admitted to the hospital with what appeared to be a multilobar pneumonia with some associated hemoptysis. Given the extensive nature of the infiltrate and hemoptysis, she was ruled out for active TB with 3- AFB smears. Cultures were still pending. The patient also had a positive blood culture that turned out to be most consistent with contaminant. The patient was subjectively feeling better. Her cough dramatically improved and she was felt to be stable for discharge to home. Of note, her troponins remained equivocal. No further workup was indicated for those. PHYSICAL EXAMINATION: VITAL SIGNS: On the day of discharge, temperature 98.4, pulse 80, respirations 18, O2 saturation 98% on room air, and BP is 140/78. GENERAL APPEARANCE: Age-appropriate female, morbidly obese, no distress. She is very pleasant, awake, alert, and oriented. HEART: Regular rate and rhythm without murmurs, gallops, or rubs. LUNGS: Clear bilaterally with no wheezes or rales. ABDOMEN: Soft, nontender, and nondistended. EXTREMITIES: Warm and dry. LABORATORY DATA: White count 5.6, hemoglobin 10. Chemistries normal. DISPOSITION: The patient is discharged to home. DISCHARGE MEDICATIONS: She will continue with her usual home medications includin. Celebrex. 2. Benadryl. 3. Tramadol. 4. Crestor. 5. Pantoprazole. 6. Paroxetine. 7. Nitroglycerin. 8. Levothyroxine. 9. Gabapentin. 10. Dicyclomine. 11. Vitamin D3. 12. Baclofen. 13. Aspirin. 14. She will have a prescription for Levaquin 500 mg one p.o. daily after having received 4 days of IV Rocephin and azithromycin in the emergency department. FOLLOWUP: The patient is to follow up with Dr. Hines and she is to have a regular diet and activity level. She can return to the hospital should she have any problems prior to the time of her followup. Time spent in discharge activities including face to face time with the patient was 35 min. Job ID: [id number] MTDD
[2018-07-27 05:12] LABS: QuantiFERON-TB Gold Plus Negative (Negative)
== END 2018-07-26 17:38 | disposition home or self-care (01) | DRG 193 ==
LOC: ERS 12:08 → 2NO 15:57
PROVIDERS: ADMIT Internal Medicine Nephrology; ATTEND Internal Medicine Nephrology
DX: J18.9 Pneumonia, unspecified organism (principal); I21.A1 Myocardial infarction type 2; E03.9 Hypothyroidism, unspecified; I25.10 Atherosclerotic heart disease of native coronary artery without angina pectoris; E66.01 Morbid (severe) obesity due to excess calories; G43.909 Migraine, unspecified, not intractable, without status migrainosus; E78.5 Hyperlipidemia, unspecified; I10 Essential (primary) hypertension; G89.4 Chronic pain syndrome; Z90.49 Acquired absence of other specified parts of digestive tract; Z98.84 Bariatric surgery status; Z79.82 Long term (current) use of aspirin; Z90.710 Acquired absence of both cervix and uterus; Z79.899 Other long term (current) drug therapy; Z68.28 Body mass index [BMI] 28.0-28.9, adult; Z79.1 Long term (current) use of non-steroidal anti-inflammatories (NSAID); Z79.891 Long term (current) use of opiate analgesic; Z98.1 Arthrodesis status
CPT/HCPCS: 36415; 71046; 71275; 80048; 80053; 82550; 82553; 83605; 83880; 84484; 85025; 86480; 86850; 86900; 86901; 87040; 87070; 87116; 87205; 87206; 87804; 93005; 94640; 94760; 96374; J0456; J0696; J1650; J3490; J7050; J7620; Q0153; Q9966; Q9967

== ENCOUNTER 2018-09-07 09:50 | Emergency (ER) | payer SELFPAY ==
[2018-09-07] MEDS ORDERED: Lidocaine 1% w/Epinephrine 1:100K 20 ML VIAL ONE (10:55)
== END 2018-09-07 11:36 | disposition home or self-care (01) ==
LOC: ERS 09:50
DX: L02.411 Cutaneous abscess of right axilla (principal); L02.412 Cutaneous abscess of left axilla; K58.9 Irritable bowel syndrome, unspecified; I25.10 Atherosclerotic heart disease of native coronary artery without angina pectoris; E78.5 Hyperlipidemia, unspecified; I10 Essential (primary) hypertension; Z79.891 Long term (current) use of opiate analgesic; Z79.899 Other long term (current) drug therapy; Z79.82 Long term (current) use of aspirin
CPT/HCPCS: 10060; J2001

== ENCOUNTER 2020-01-21 10:24 | Emergency (ER) | payer SELFPAY ==
--- NOTE | 2020-01-21 11:02 | RAD ---
LEFT FOOT 3 VIEWS: Date: 01/21/2020 INDICATION: Foot pain. COMPARISON: 01/17/2018. FINDINGS: Deformities of the distal fourth and fifth metatarsals noted, as a result of healed fractures which w ere acute on the prior study of 01/17/2018. Spur from the plantar calcaneus is again noted. No acute fracture. MTP joints unremarkable. There is soft tissue swelling surrounding the fifth MTP joint. IMPRESSION: Deformities of the distal fourth and fifth metatarsals. Deformities are especially prominent involvin g the head of the fifth metatarsal which is secondary to healing of prior fractures which were descri bed on 01/17/2018. POS: AH
[2020-01-21] MEDS ORDERED: Bacitracin 1 PK ONE (12:14)
[2020-01-21] MEDS ORDERED: Boostrix 0.5 ML VIAL ONE (12:14)
== END 2020-01-21 12:51 | disposition home or self-care (01) ==
LOC: ERS 10:24
DX: S91.302A Unspecified open wound, left foot, initial encounter (principal); M77.32 Calcaneal spur, left foot; E03.9 Hypothyroidism, unspecified; E78.5 Hyperlipidemia, unspecified; I10 Essential (primary) hypertension; Z79.82 Long term (current) use of aspirin; Z79.899 Other long term (current) drug therapy; X58.XXXA Exposure to other specified factors, initial encounter
CPT/HCPCS: 36416; 90471; 90715